=== PATIENT | male | born 1990 | race Hispanic/Latino ===

== ENCOUNTER 2017-10-09 06:28 | Emergency (ER) | payer BC ==
[2017-10-09 06:34] VITALS: PULSE 62; RESP 17; TEMP 97.9
[2017-10-09] MEDS ORDERED: Morphine 4 MG/ML VIAL IVP STA (07:03)
[2017-10-09] MEDS ORDERED: Sodium Chloride 0.9% 1,000 ML IV ONE (07:04)
--- NOTE | 2017-10-09 07:07 | ED PDOC ---
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) Current Symptoms Are (Timing): Still Present Severity: Moderate Location Of Pain/Discomfort: LLQ Quality Of Discomfort: Sharp, Other (rads to back) Associated Symptoms: denies: Fever, Chills, Nausea, Vomiting, Diarrhea, Loss Of Appetite, Back Pain, Chest Pain, Constipation, Urinary Symptoms Exacerbating Factors: None Alleviating Factors: None Last Bowel Movement: Yesterday Additional History Per: Patient Past Medical History Reviewed: Historical Data, Nursing Documentation, Vital Signs Vital Signs: Last Vital Signs Temp 97.9 F 10/09/17 06:32 Pulse 62 10/09/17 06:32 Resp 17 10/09/17 06:32 BP 130/92 H 10/09/17 06:32 Pulse Ox 100 10/09/17 07:07 - Medical History PMH: No Chronic Diseases - Family History Family History: States: Unknown Family Hx - Living Arrangements Living Arrangements: With Family - Social History Current smoker - smoking cessation education provided: No - Home Medications Home Medications: Ambulatory Orders Medication Instructions Recorded Oxycodone HCl/Acetaminophen 1 tab PO Q6H PRN #15 tab 07/24/15 [Percocet 325 mg-5 mg] Ondansetron ODT [Zofran ODT] 4 mg PO QID PRN #14 odt 10/09/17 Tamsulosin [Flomax] 0.4 mg PO DAILY #20 cap 10/09/17 oxyCODONE/Acetaminophen [Percocet 1 tab PO QID PRN #20 tab 10/09/17 5/325 mg Tab] - Allergies Allergies/Adverse Reactions: Allergies Allergy/AdvReac Type Severity Reaction Status Date / Time Penicillins Allergy URTICARIA Verified 10/09/17 06:35 Review of Systems ROS Statement: Except As Marked, All Systems Reviewed And Found Negative Constitutional: Negative for: Fever, Chills Cardiovascular: Negative for: Chest Pain, Palpitations Respiratory: Negative for: Cough, Shortness of Breath Gastrointestinal: Positive for: Nausea, Abdominal Pain, Other (left flank pain) . Negative for: Vomiting Genitourinary Male: Negative for: Dysuria, Frequency, Incontinence, Hematuria, Scrotal Pain, Rash, Penile Pain Physical Exam - Reviewed Nursing Documentation Reviewed: Yes Vital Signs Reviewed: Yes - Physical Exam Appears: Positive for: Uncomfortable (in obvious pain) Head Exam: Positive for: ATRAUMATIC, NORMAL INSPECTION, NORMOCEPHALIC Eye Exam: Positive for: Normal appearance, EOMI, PERRL Neck: Positive for: Normal, Painless ROM, Supple Cardiovascular/Chest: Positive for: Regular Rate, Rhythm Respiratory: Positive for: Normal Breath Sounds. Negative for: Decreased Breath Sounds, Accessory Muscle Use, Crackles, Stridor, Wheezing Gastrointestinal/Abdominal: Positive for: Normal Exam, Bowel Sounds, Soft. Negative for: Tenderness Male Genital Exam: Positive for: normal genitalia, other (chaperoned by sushil). Negative for: no hernia, epididymal tenderness, hernia mass, scrotum tenderness (R), scrotum tenderness (L), testicular tenderness (R), testicular tenderness (L ) Back: Positive for: Normal Inspection Extremity: Positive for: Normal ROM. Negative for: Tenderness, Pedal Edema Neurologic/Psych: Positive for: Alert, classification officer II-XII, Oriented. Negative for: Motor/Sensory Deficits - Laboratory Results Result Diagrams: 10/09/17 06:55 10/09/17 06:55 - ECG O2 Sat by Pulse Oximetry: 100 Pulse Ox Interpretation: Normal - Progress ED Course And Treament: sx resolved pt has a renal stone possibly two approx 3cm advise close f/u with urology advise not to drive on percocet for pain. all of pt's questions were answered and pt agree's with plan. Re-evaluation Time: 08:56 Condition: Improved Disposition - Clinical Impression Clinical Impression: Renal colic on left side - Patient ED Disposition Is Patient to be Admitted: No Counseled Patient/Family Regarding: Studies Performed, Diagnosis, Need For Followup, Rx Given - Disposition Referrals: Ari Gardner Jr., MD [Staff Provider] - (2 to 3 days) Disposition: Routine/Home Disposition Time: 08:55 Condition: GOOD Prescriptions: Ondansetron ODT [Zofran ODT] 4 mg PO QID PRN #14 odt PRN Reason: Nausea/Vomiting oxyCODONE/Acetaminophen [Percocet 5/325 mg Tab] 1 tab PO QID PRN #20 tab PRN Reason: Pain, Moderate (4-7) Tamsulosin [Flomax] 0.4 mg PO DAILY #20 cap Instructions: Renal Colic (ED) Forms: [employer] (Norwegian)
[2017-10-09 07:10] LABS: BASO % 0.7 % (0.0-2.0); EOS # 0.1 K/uL (0.0-0.7); EOS % 0.8 % (0.0-4.0); HEMOGLOBIN 15.2 g/dL (12.0-18.0); LYMPH # 1.9 K/uL (1.0-4.3); LYMPH % 26.4 % (20.0-40.0); MEAN CORPUSCULAR HEMOGLOBIN 30.2 pg (27.0-31.0); MEAN CORPUSCULAR HGB CONC 33.5 g/dL (33.0-37.0); MEAN PLATELET VOLUME 9.8 fl (7.2-11.7); MONO # 0.6 K/uL (0.0-0.8); NEUT # 4.5 K/uL (1.8-7.0); NEUT % 63.1 % (50.0-75.0); NRBC % 0.2 % (0.0-0.0); RBC 5.03 Mil/uL (4.40-5.90); RED CELL DISTRIBUTION WIDTH 13.4 % (11.5-14.5); WHITE BLOOD COUNT 7.2 K/uL (4.8-10.8)
[2017-10-09] MEDS ORDERED: Morphine 4 MG/ML VIAL ONE (07:13)
[2017-10-09 07:27] LABS: ALB/GLOB RATIO 1.6 (1.0-2.1); ALBUMIN 4.6 g/dL (3.5-5.0); ALT/SGPT 41 U/L (21-72); AST/SGOT 27 U/L (17-59); BLOOD UREA NITROGEN 14 mg/dl (9-20); CALCIUM 10.1 mg/dL (8.4-10.2); GFR AFRICAN-AMERICAN > 60; GFR NON-AFRICAN AMERICAN > 60; LIPASE 60 U/L (23-300)
[2017-10-09 07:41] LABS: INR 1.1 (0.9-1.2); PARTIAL THROMBOPLASTIN TIME 28.3 Seconds (25.6-37.1); PROTHROMBIN TIME 12.1 Seconds (9.8-13.1)
--- NOTE | 2017-10-09 08:40 | CT ---
PROCEDURE: CT Abdomen and Pelvis without intravenous contrast HISTORY: L flank pain COMPARISON: None. TECHNIQUE: Without contrast.. Contrast Dose: 0 Radiation dose: Total exam DLP = 847.24 mGy-cm. This CT exam was performed using one or more of the following dose reduction techniques: Automated exposure control, adjustment of the mA and/or kV according to patient size, and/or use of iterative reconstruction technique. FINDINGS: LOWER THORAX: Unremarkable. LIVER: Unremarkable. No gross lesion or ductal dilatation. GALLBLADDER AND BILE DUCTS: Unremarkable. PANCREAS: Unremarkable. No gross lesion or ductal dilatation. SPLEEN: Unremarkable. ADRENALS: Unremarkable. No mass. KIDNEYS AND URETERS: Left hydroureteronephrosis. Obstructing 7 mm calculus mid left ureter as measured from the coronal images. It is possible that this represents several small adjacent calculi and is not clearly resolved on the basis of this examination. No renal calculus. No right hydronephrosis. No renal mass. Minimal left perinephric stranding without farhat perinephric urinary collection. VASCULATURE: Unremarkable. No aortic aneurysm. BOWEL: Unremarkable. No obstruction. No gross mural thickening. APPENDIX: Unremarkable. Normal appendix. PERITONEUM: Unremarkable. No free fluid. No free air. LYMPH NODES: Unremarkable. No enlarged lymph nodes. BLADDER: Unremarkable. REPRODUCTIVE: Normal prostate BONES: No acute fracture. OTHER FINDINGS: None. IMPRESSION: Obstructing 7 mm mid left ureteral calculus with left hydroureteronephrosis. Preliminary interpretation of this examination was reported by [facility] at time. There is concurrence of this report with the preliminary interpretation.
[2017-10-09 10:10] LABS: SQUAMOUS EPITHIAL < 1 /hpf (0-5); URINE BILIRUBIN NEGATIVE (NEGATIVE); URINE BLOOD MODERATE (NEGATIVE); URINE CLARITY SLIGHTY-CLOUDY (Clear); URINE COLOR YELLOW (YELLOW); URINE GLUCOSE (UA) NEG (Normal); URINE LEUKOCYTE ESTERASE NEG Leu/uL (Negative); URINE NITRATE NEGATIVE (NEGATIVE); URINE PROTEIN NEGATIVE (NEGATIVE); URINE UROBILINOGEN 0.2-1.0 mg/dL (0.2-1.0)
[2017-10-09 10:40] VITALS: BP 149/87; O2SAT 99
== END 2017-10-09 10:23 | disposition home or self-care (01) ==
LOC: H.ER 06:28
DX: N13.2 Hydronephrosis with renal and ureteral calculous obstruction (principal); Z88.0 Allergy status to penicillin
CPT/HCPCS: 74176; 80053; 81003; 83690; 85025; 85610; 85730; 96361; 96374; 96375; 99283; J1885; J2270; J2405; J7040